=== PATIENT | female | born 1945 | race Caucasian/White ===

== ENCOUNTER → 2016-06-16 | Outpatient (CLI) | payer MEDICARE, BC, OTHER ==
--- NOTE | 2016-06-16 17:17 | Diagnostic Imaging Report ---
Indication: COUGH Technique: 2 views of the chest Comparison: none. Findings: Lungs and pleural spaces are clear. Heart size is normal. Bones are unremarkable. There is mild hyperinflation. There is a wedge compression fracture deformity of the T8 vertebral body. Impression: No acute process Possible mild COPD changes T8 compression fracture, age indeterminate
== END | disposition home or self-care (01) ==
LOC: RAD 13:07
DX: Z01.818 Encounter for other preprocedural examination (principal); R05 Cough; S22.060A Wedge compression fracture of T7-T8 vertebra, initial encounter for closed fracture; X58.XXXA Exposure to other specified factors, initial encounter; Y93.9 Activity, unspecified; Y92.9 Unspecified place or not applicable
CPT/HCPCS: 71020